=== PATIENT | male | born 1960 | race Caucasian/White ===

== ENCOUNTER 2020-02-17 16:54 | Emergency (ER) | payer SELFPAY ==
[~2020-02-17 16:54] MED LIST: XANAX1 MG PO
[2020-02-17 17:00] VITALS: Ht 180.3 cm
[2020-02-17 19:17] VITALS: BP 133/97
== END 2020-02-17 19:17 | disposition home or self-care (01) ==
LOC: D.ER 16:54
DX: T17.228A Food in pharynx causing other injury, initial encounter (principal); X58.XXXA Exposure to other specified factors, initial encounter; R07.0 Pain in throat